=== PATIENT | female | born 1985 | race Caucasian/White ===

== ENCOUNTER 2017-04-02 22:59 | Emergency (ER) | payer MEDICAID, OTHER ==
[~2017-04-02] VITALS: Ht 154.9 cm; Wt 70.4 kg
[2017-04-02 23:06] VITALS: Ht 154.9 cm; Wt 70.4 kg
[2017-04-02 23:53] LABS: URINE BLOOD (Dip) POC 2+ (NEGATIVE)
[2017-04-03] MEDS ORDERED: PHEN-537 PO (00:20)
[2017-04-03] MEDS ORDERED: CEPH-443 PO (00:20)
[2017-04-03] MEDS ORDERED: MICO24CM3 VAG (00:21)
--- NOTE | 2017-04-03 00:26 | ERD ---
ER Documentation Chief Complaint Date/Time DATE: 04/03/17 TIME: 00:22 Chief Complaint dysuria and blood in urine x1 week HPI This is a 31-year-old female presents to the ER with urinary frequency and dysuria for the last week. Patient states that she noticed blood in her urine 2 days ago. Patient complains of suprapubic pain while urinating. She also complains of vaginal itching and white vaginal discharge. She denies any lesions to her vagina. She denies any foul-smelling vaginal discharge. Patient 's last normal menstrual period was on March 01, 2017. She denies any fevers or chills. She denies any flank pain. She denies any nausea vomiting or diarrhea. ROS 12 point review of systems was done, all negative except per HPI. Medications Home Meds Active Scripts Miconazole Nitrate* (Monistat 3*) 24 Gm Cmb.pf.crm, 1 APPFUL VAG HS for 3 Days, TUB X 3 Prov:BING ALEJANDRA 04/03/17 Phenazopyridine Hcl* (Pyridium*) 100 Mg Tab, 100 MG PO TID Y for URINARY PAIN, # 9 TAB Prov:BING ALEJANDRA 04/03/17 Cephalexin* (Keflex*) 500 Mg Capsule, 500 MG PO BID for 7 Days, CAP Prov:NYBING WOLF C 04/03/17 Allergies Allergies: Coded Allergies: No Known Allergy (Verified , 04/02/17) PMhx/Soc Medical and Surgical Hx: pt denies Medical Hx, pt denies Surgical Hx Hx Alcohol Use: No Hx Substance Use: No Hx Tobacco Use: No Smoking Status: Never smoker Physical Exam Vitals Vital Signs Date Time Temp Pulse Resp B/P Pulse Ox O2 Delivery O2 Flow Rate FiO2 04/02/17 23:06 97.9 70 18 132/70 97 Physical Exam GENERAL: The patient is well developed and appropriate for usual state of health , in no apparent distress. HEENT: Atraumatic. CHEST: Clear to auscultation bilaterally. There are no rales, wheezes or rhonchi. HEART: Regular rate and rhythm. No murmurs, clicks, rubs or gallops. ABDOMEN: Soft, nontender and nondistended. Good bowel sounds. No rebound or guarding. No gross peritonitis. No gross organomegaly or masses. No Rico sign or McBurney point tenderness. Positive suprapubic tenderness BACK: No midline or flank tenderness. NEURO: Alert and oriented. Results 24 hrs Laboratory Tests Test 04/02/17 23:57 Bedside Urine pH (LAB) 6.5 Bedside Urine Protein (LAB) 1+ Bedside Urine Glucose (UA) Negative Bedside Urine Ketones (LAB) Negative Bedside Urine Blood 2+ Bedside Urine Nitrite (LAB) Negative Bedside Urine Leukocyte Esterase (L Negative Procedures/MDM This is a 31-year-old female presents to the ER with urinary frequency and dysuria for the last week. Patient will be treated for cystitis secondary to severity of her symptoms. Urine will be sent out for culture. Suspicion for kidney stones, obstructive stones, septic stone, pyelonephritis is low as patient is afebrile and well-appearing without any flank pain. Patient will be sent home with Keflex and with Monistat. Patient is to follow-up with her primary care doctor within 1-2 days or return to ER sooner if symptoms worsen. My medical decision was shared with the patient she understands and agrees with plan. Departure Diagnosis: Primary Impression: Cystitis Condition: Stable Patient Instructions: Cystitis Additional Instructions: Llame al doctor MAANA y halina gordon JYOTSNA PARA DENTRO DE 1-2 LEACH.Dgale a la secretaria que nosotros le instruimos hacer esta jyotsna.Avise o llame si العلي condicin se empeora antes de la jyotsna. Regresa aqui si peor o no mejor. BING ALEJANDRA Apr 03, 2017 00:25
[2017-04-03 00:38] VITALS: BP 136/79; PULSE 68; RESP 18; TEMP 99
== END 2017-04-03 00:40 | disposition home or self-care (01) ==
LOC: FTE 22:59
DX: N30.91 Cystitis, unspecified with hematuria (principal); N89.8 Other specified noninflammatory disorders of vagina
CPT/HCPCS: 81003; Z7502; 99283

== ENCOUNTER 2018-06-08 05:51 | Day surgery (SDC) | END 2018-06-08 10:20 | disposition home or self-care (01) ==

== ENCOUNTER 2019-03-18 06:23 | Emergency (ER) | payer OTHER ==
[~2019-03-18] VITALS: Ht 160 cm; Wt 67.0 kg
[2019-03-18 06:26] VITALS: BP 139/90; PULSE 62; RESP 16; Ht 160 cm; Wt 67.0 kg
[2019-03-18] MEDS ORDERED: IBUP-1542 PO (09:19)
--- NOTE | 2019-03-18 09:20 | ERD ---
ER Documentation Chief Complaint Chief Complaint pelvic pain with chills x 3 days , unsure about preg HPI 33 year old female presents with pelvic pain x 3 days. She reports that she has missed her period for 1 week and is unsure if she is currently or not. She is . In addition she reports abd/pelvic pain that is 6/10 intensity with achy character. She denies radiation of her pain anywhere. She denies burning urination or other signs of UTI. She does state that she saw dried blood when she urinates. ROS All systems reviewed and are negative except as per history of present illness. Medications Home Meds Active Scripts Ibuprofen* (Motrin*) 600 Mg Tab, 600 MG PO Q6H PRN for PAIN AND OR ELEVATED TEMP, #30 TAB Prov:LALITO MATA PA-C 03/18/19 Allergies Allergies: Coded Allergies: No Known Allergy (Verified , 06/08/18) PMhx/Soc History of Surgery: No Anesthesia Reaction: No Hx Neurological Disorder: No Hx Respiratory Disorders: No Hx Cardiac Disorders: No Hx Psychiatric Problems: No Hx Miscellaneous Medical Probl: No Hx Alcohol Use: No Hx Substance Use: No Hx Tobacco Use: No Smoking Status: Never smoker FmHx Family History: No diabetes Physical Exam Vitals Vital Signs Date Temp Pulse Resp B/P (MAP) Pulse Ox O2 O2 Flow FiO2 Time Delivery Rate 03/18/19 97.6 62 16 139/90 100 06:26 (106) Physical Exam Const: No acute distress Head: Atraumatic Eyes: Normal Conjunctiva ENT: Normal External Ears, Nose and Mouth. Neck: Full range of motion. Resp: Clear to auscultation bilaterally Cardio: Regular rate and rhythm, Abd: Soft, non distended. Normal bowel sounds. Slight tenderness to the suprapubic region across lower abd Skin: No petechiae or rashes Back: Slight midline tenderness on the L spine Ext: No cyanosis, or edema Neur: Awake and alert Psych: Normal Mood and Affect Result Diagram: 03/18/19 0711 03/18/19 0711 Results 24 hrs Laboratory Tests Test 03/18/19 07:11 White Blood Count 7.3 10^3/ul Red Blood Count 4.65 10^6/ul Hemoglobin 13.3 g/dl Hematocrit 40.0 % Mean Corpuscular Volume 86.0 fl Mean Corpuscular Hemoglobin 28.6 pg Mean Corpuscular Hemoglobin Concent 33.3 g/dl Red Cell Distribution Width 13.3 % Platelet Count 280 10^3/UL Mean Platelet Volume 10.5 fl Immature Granulocytes % 0.100 % Neutrophils % 56.1 % Lymphocytes % 34.1 % Monocytes % 7.0 % Eosinophils % 2.0 % Basophils % 0.7 % Nucleated Red Blood Cells % 0.0 /100WBC Immature Granulocytes # 0.010 10^3/ul Neutrophils # 4.1 10^3/ul Lymphocytes # 2.5 10^3/ul Monocytes # 0.5 10^3/ul Eosinophils # 0.2 10^3/ul Basophils # 0.1 10^3/ul Nucleated Red Blood Cells # 0.0 10^3/ul Urine Color YELLOW Urine Clarity CLEAR Urine pH 5.0 Urine Specific [place] 1.024 Urine Ketones NEGATIVE mg/dL Urine Nitrite NEGATIVE mg/dL Urine Bilirubin NEGATIVE mg/dL Urine Urobilinogen NEGATIVE mg/dL Urine Leukocyte Esterase NEGATIVE Linda/ul Urine Microscopic RBC 2 /HPF Urine Microscopic WBC 6 /HPF Urine Squamous Epithelial Cells FEW /HPF Urine Bacteria FEW /HPF Urine Mucus FEW /HPF Urine Hemoglobin 1+ mg/dL Urine Glucose NEGATIVE mg/dL Urine Total Protein 1+ mg/dl Sodium Level 141 mmol/L Potassium Level 3.8 mmol/L Chloride Level 106 mmol/L Carbon Dioxide Level 26 mmol/L Anion Gap 9 Blood Urea Nitrogen 12 mg/dl Creatinine 0.53 mg/dl Est Glomerular Filtrat Rate mL/min > 60 mL/min Glucose Level 91 mg/dl Calcium Level 9.1 mg/dl Beta HCG, Quantitative < 2.4 mIU/ml Procedures/MDM ED COURSE: The patient was stable throughout ED course. I kept the patient informed of laboratory and diagnostic imaging results throughout the ED course. DIAGNOSTIC IMAGING: Read by radiologist. PROCEDURE: US Obstetrical 1st Trimester with endovaginal scanning and Doppler. CLINICAL INDICATION: Vaginal bleeding TECHNIQUE: Multiple real-time images were acquired of the patient's maternal abdomen utilizing a curved array transducer. Endovaginal scanning and Doppler were also applied. COMPARISON: None FINDINGS: The uterus is retroverted and normal in size measuring 7.5 cm in sagittal diameter and 5.9 x 5.4 cm in cross diameter. The endometrial stripe measures approximately 5.7 mm. No intrauterine gestational sac or pole is identified. The right ovary measures 3.5 x 2.1 x 1.8 cm and appears unremarkable.. The left ovary measures 2.8 x 1.5 x 1.4 cm and appears unremarkable. Vascular flow is demonstrated in each ovary on Doppler. There is a small amount of free fluid seen in the cul-de-sac and left adnexal region. No adnexal mass is identified. IMPRESSION: 1. of unknown location. Negative for evidence of an intrauterine and negative for evidence of an adnexal mass. Differential diagnosis includes early intrauterine , failed or ectopic . Recommend correlation with serial serum beta HCG and follow-up ultrasound in 7- 10 days or earlier if clinically warranted. Please see reference below. Reference: Mera Thomas et al. NEJM 2013; 369: 6323-7922. Please note that if the serum beta HCG is greater than 3000 mIU/mL, the probability of a nonviable IUP or ectopic is 99.5% and the probability of a viable IUP is 0.5%. The beta HCG may be higher than predicted for gestational age in early twin pregnancies, and a single serum HCG measurement cannot reliably differentiate an IUP (viable or nonviable) from an ectopic . 2. Normal appearing ovaries with vascular flow demonstrated in each. 3. Small amount of free intraperitoneal fluid. Physician Zoila Date Time Electronically viewed and signed by Physician Zoila on 03/18/2019 08:55 MEDICATIONS GIVEN: [None.] MEDICAL DECISION MAKING: Patient is a 33 year old female complaining of abd/pelvic pain x 3 days. She reports missing her period x 1 week and is unsure of a current . Beta HCg showed levels of < 2.4 units showing that she is not at this time. U/S of her abd/pelvis was also performed and was negative. U/S did show slight fluid. Pt also did report dried blood when she urinated. With this, I believe it may have been an ovarian cyst that burst. Patient was stable and discharged with instructions to follow up with OBGYN in the next 1-2 days. At this time I do no suspect , UTI, Ectopic , Molar , ovarian torsion. Vital signs were reviewed. Patient is afebrile. Patient was not hypoxic. Patient was hemodynamically stable. PRESCRIPTION: Negro DISCHARGE: At this time, patient is stable for discharge and outpatient management. I have instructed the patient to follow-up with his/her primary care physician in 1-2 days. I have discussed with the patient the possibility of needing to see a specialist for further workup and imaging studies if symptoms persist. I have instructed the patient to promptly return to the ER for any new or worsening symptoms including increased pain, fever, nausea, vomiting, weakness or LOC. The patient and/or family expressed understanding of and agreement with this plan. All questions were answered. Home care instructions were provided. Disclaimer: Inadvertent spelling and grammatical errors are likely due to EHR/dictation software use and do not reflect on the overall quality of patient care. Also, please note that the electronic time recorded on this note does not necessarily reflect the actual time of the patient encounter. Departure Diagnosis: Primary Impression: Acute pain in female pelvis Condition: Fair Patient Instructions: Pelvic Pain, Unknown Cause Referrals: [facility] YOU HAVE RECEIVED A MEDICAL SCREENING EXAM AND THE RESULTS INDICATE THAT YOU DO NOT HAVE A CONDITION THAT REQUIRES URGENT TREATMENT IN THE EMERGENCY DEPARTMENT. FURTHER EVALUATION AND TREATMENT OF YOUR CONDITION CAN WAIT UNTIL YOU ARE SEEN IN YOUR DOCTORS OFFICE WITHIN THE NEXT 1-2 DAYS. IT IS YOUR RESPONSIBILITY TO MAKE AN APPOINTMENT FOR FOLOW-UP CARE. IF YOU HAVE A PRIMARY DOCTOR --you should call your primary doctor and schedule an appointment IF YOU DO NOT HAVE A PRIMARY DOCTOR YOU CAN CALL OUR PHYSICIAN REFERRAL HOTLINE AT IF YOU CAN NOT AFFORD TO SEE A PHYSICIAN YOU CAN CHOSE FROM THE FOLLOWING [facility] [address] [facility]. [facility] [address] [facility] [address] [facility]. [facility] [address] [facility]. [facility] [address] [facility]. [facility]. [address] [facility]. [facility] YOU HAVE RECEIVED A MEDICAL SCREENING EXAM AND THE RESULTS INDICATE THAT YOU DO NOT HAVE A CONDITION THAT REQUIRES URGENT TREATMENT IN THE EMERGENCY DEPARTMENT. FURTHER EVALUATION AND TREATMENT OF YOUR CONDITION CAN WAIT UNTIL YOU ARE SEEN IN YOUR DOCTORS OFFICE WITHIN THE NEXT 1-2 DAYS. IT IS YOUR RESPONSIBILITY TO MAKE AN APPOINTMENT FOR FOLOW-UP CARE. IF YOU HAVE A PRIMARY DOCTOR --you should call your primary doctor and schedule and appointment IF YOU DO NOT HAVE A PRIMARY DOCTOR YOU CAN CALL OUR PHYSICIAN REFERRAL HOTLINE AT . IF YOU CAN NOT AFFORD TO SEE A PHYSICIAN YOU CAN CHOSE FROM THE FOLLOWING [facility] INSTITUTIONS: [facility] [address] [place] [address] [facility] [address] [place] [address] [facility] [address] [place] [address] [employer] [place] [address] [facility] [address] [place] [address] OFFICE FAX , [place] [address] [place], [place] [id number] [address] [facility]LY [facility] [address] [place] [address] [address] [facility] [address] [facility], [address] [address] [address] [address] [place] [address] [facility] [address] [place], [place] [id number] [address] [facility] [address] - [address], [facility] [address] [address] [address] [facility] [address], [facility] [address] [address] [address] [place] [address] Additional Instructions: Call your primary care doctor TOMORROW for an appointment during the next 1-2 days.See the doctor sooner or return here if your condition worsens before your appointment time. LALITO MATA PA-C Mar 18, 2019 09:20
== END 2019-03-18 09:24 | disposition home or self-care (01) ==
LOC: FTE 06:23
DX: R10.2 Pelvic and perineal pain (principal)
CPT/HCPCS: 36415; 76801; 76817; 80048; 81001; 84702; 85025; 86900; 86901; Z7502